=== PATIENT | female | born 1960 | race Caucasian/White ===

== ENCOUNTER → 2023-10-21 | Emergency (ER) | payer MEDICAID ==
[~2023-10-21] VITALS: Ht 165.1 cm; Wt 54.5 kg
[2023-10-21 21:52] VITALS: BP 158/84; PULSE 71; RESP 16; TEMP 98.5; O2SAT 100
== END | disposition left against medical advice (07) ==
LOC: ER 21:30
DX: R41.0 Disorientation, unspecified (principal); R40.4 Transient alteration of awareness
CPT/HCPCS: 99281

== ENCOUNTER 2024-03-11 10:01 | Outpatient (CLI) | payer MEDICAID | END 2024-03-11 23:59 | disposition home or self-care (01) | LOC: RAD 10:01 | PROVIDERS: ATTEND Student in an Organized Health Care Education/Training Program | DX: K82.4 Cholesterolosis of gallbladder (principal); K43.9 Ventral hernia without obstruction or gangrene | CPT/HCPCS: 76700 ==

== ENCOUNTER 2024-06-05 09:15 | Day surgery (SDC) | payer MEDICAID ==
[2024-06-05] VITALS (12 sets, daily range): BP systolic 125–159; BP diastolic 58–95; PULSE 48–74; RESP 10–12; TEMP 97.9; O2SAT 95–100
[~2024-06-05] VITALS: Ht 165.1 cm; Wt 58.5 kg
[2024-06-05] MEDS ORDERED: nitroGLYCERIN 0.4mg SUBLingual tab SL PRN (09:55)
[2024-06-05 10:13] LABS: BASOPHILS % (AUTO) 1.3 % (0-1); EOSINOPHILS # (AUTO) 0.1 X10'3 (0-0.9); EOSINOPHILS % (AUTO) 4.6 % (0-6); HEMATOCRIT 36.1 % (35.0-45.0); HEMOGLOBIN 12.4 g/dl (12.0-16.0); LYMPHOCYTES # (AUTO) 0.8 X10'3 (1.1-4.8); LYMPHOCYTES % (AUTO) 29.4 % (21-51); MEAN CORPUSCULAR HEMOGLOBIN 32.5 PG (27.0-31.0); MEAN CORPUSCULAR HGB CONC 34.3 g/dL (33.0-36.5); MEAN CORPUSCULAR VOLUME 94.8 FL (78-98); MEAN PLATELET VOLUME 6.9 FL (7.4-10.4); MONOCYTES # (AUTO) 0.4 X10'3 (0-0.9); MONOCYTES % (AUTO) 13.9 % (2-12); NEUTROPHILS # (AUTO) 1.4 X10'3 (1.8-7.7); NEUTROPHILS % (AUTO) 50.8 % (42-75); PLATELET COUNT 189 X10'3 (140-440); RED BLOOD COUNT 3.81 X10'6 (4.20-5.60); RED CELL DISTRIBUTION WIDTH 13.7 % (11.5-14.5); WHITE BLOOD COUNT 2.7 X10'3 (4.5-11.0)
[2024-06-05 10:21] LABS: ALBUMIN 3.4 G/DL (3.4-5.0); ANION GAP 6 (8-16); BLOOD UREA NITROGEN 11 MG/DL (7-18); BUN/CREATININE RATIO 18.3 (10.0-20.0); CALCIUM 8.5 MG/DL (8.5-10.1); CHLORIDE 106 MMOL/L (99-107); GLUCOSE 83 MG/DL (70-104); POTASSIUM 3.7 MMOL/L (3.5-5.1); SODIUM 140 MMOL/L (135-145); TOTAL CARBON DIOXIDE 28.5 MMOL/L (24-32); eCRCL 89 ML/MIN; eGFR > 90 ML/MIN
[2024-06-05] MEDS ORDERED: FERR236T3 PO (10:21)
[2024-06-05] MEDS ORDERED: TRAZ-256 PO (10:21)
[2024-06-05] MEDS ORDERED: BUSP15TA3 PO (10:21)
[2024-06-05] MEDS ORDERED: PANT40TA54 PO (10:21)
[2024-06-05] MEDS ORDERED: LEVO125T8 PO (10:21)
[2024-06-05] MEDS ORDERED: PYRI-3 PO (10:21)
[2024-06-05] MEDS ORDERED: ONDA-104 SL (10:21)
[2024-06-05] MEDS ORDERED: DULO30CA52 PO (10:21)
[2024-06-05] MEDS ORDERED: CYAN50007 PO (10:21)
[2024-06-05 10:26] LABS: APTT 27 SECONDS (22-32); INR 1.1 INR; PROTHROMBIN TIME 11.8 SECONDS (9.0-12.0)
[2024-06-05] MEDS: LORazepam 0.5 MG tablet PO PRN (10:32)
[2024-06-05] MEDS: diphenhydrAMINE 25mg capsule PO PRN (10:32)
[2024-06-05] MEDS: normal saline 1,000 ML IV SCH (10:33)
[2024-06-05 10:41] LABS: PLATELET ESTIMATE NORMAL; TOTAL CELLS COUNTED 100
[2024-06-05] MEDS ORDERED: LIDOcaine 1% 30ml preserv. free vial ONE (10:46)
[2024-06-05] MEDS ORDERED: fentaNYL/PF 50MCG/1 ML 2ML syringe ONE (10:46)
[2024-06-05] MEDS ORDERED: midazolam 1 mg/ML 2ml injection ONE (10:46)
[2024-06-05] MEDS ORDERED: iohexol 350 MG/ML 50ML vial IV ONE (10:46)
[2024-06-05] MEDS ORDERED: iohexol 350MG/ML 100ml bottle IV ONE (10:46)
[2024-06-05] MEDS ORDERED: HYDROcodone/acetaminophen 5mg/325mg tablet PO PRN (12:30)
[2024-06-05] MEDS ORDERED: morphine 4 MG/ML inj SYRINge IV PRN (12:30)
[2024-06-05] MEDS ORDERED: HYDROcodone/acetaminophen 10/325mg tab PO PRN (12:30)
[2024-06-05] MEDS ORDERED: ondansetron/PF 4mg/2ml inj IV PRN (12:30)
[2024-06-05] MEDS ORDERED: normal saline 1000ml 1,000 ML IV SCH (12:30)
[2024-06-05] MEDS ORDERED: proCHLORperazine 10 MG/2 ml inj IV PRN (12:30)
[2024-06-05] MEDS ORDERED: OXAZEpam 15mg capsule PO PRN (12:30)
[2024-06-05] MEDS ORDERED: ACETYLCYSTEINE 200 MG/1 ML 4 ML ORAL SOLUTION PO SCH (20:00)
== END 2024-06-05 18:00 | disposition home or self-care (01) ==
LOC: SSTAY O 09:15
PROVIDERS: ATTEND Internal Medicine Cardiovascular Disease
DX: R94.39 Abnormal result of other cardiovascular function study (principal); I25.10 Atherosclerotic heart disease of native coronary artery without angina pectoris; R94.31 Abnormal electrocardiogram [ECG] [EKG]; K21.9 Gastro-esophageal reflux disease without esophagitis; Z98.890 Other specified postprocedural states
CPT/HCPCS: 71046; 80048; 85025; 85610; 85730; 93005; 93458; 99152; J1644; J2250; J3010; J3490; J7030; Q0163; Q9967; 85007; A6258; C1760; C1769

== ENCOUNTER 2024-06-25 06:26 | Day surgery (SDC) | payer MEDICAID ==
[~2024-06-25] VITALS: Ht 165.1 cm; Wt 54.1 kg
[~2024-06-25 06:26] MED LIST: BUSP15TA3 PO; CYAN50007 PO; DULO30CA52 PO; FERR236T3 PO; LEVO125T8 PO; ONDA-104 SL; PANT40TA54 PO; PYRI-3 PO; TRAZ-256 PO
[2024-06-25 06:49] VITALS: BP 112/56; PULSE 64; RESP 13
[2024-06-25] MEDS ORDERED: LIDOcaine 2% Viscous 15ml cup ONE (07:29)
[2024-06-25] MEDS ORDERED: fentaNYL/PF 50MCG/1 ML 2ML syringe ONE (07:50)
[2024-06-25] MEDS ORDERED: MIDAZolam 1 MG/ML 5ML VIAL ONE (07:50)
[2024-06-25] MEDS ORDERED: simethicone 40mg/0.6ml oral drops 30ml ONE (08:25)
[2024-06-25 08:28] VITALS: BP 108/65; PULSE 64; RESP 17; O2SAT 94
[2024-06-25 08:36] VITALS: BP 117/66; PULSE 62; RESP 12; O2SAT 94
[2024-06-25 08:46] VITALS: BP 109/66; PULSE 62; RESP 12; O2SAT 96
[2024-06-25 08:56] VITALS: BP 112/64; PULSE 59; RESP 13; O2SAT 95
== END 2024-06-25 09:02 | disposition home or self-care (01) ==
LOC: GI LAB 06:26
PROVIDERS: ATTEND Surgery
DX: K44.9 Diaphragmatic hernia without obstruction or gangrene (principal); K29.70 Gastritis, unspecified, without bleeding
CPT/HCPCS: 43239; 99152; J2250; J3010; J7030; Z7512; 99153; A4620

== ENCOUNTER 2024-09-05 05:42 | Inpatient (IN) | payer MEDICAID ==
[2024-08-30 15:33] LABS: BASOPHILS % (AUTO) 0.9 % (0-1); EOSINOPHILS # (AUTO) 0.2 X10'3 (0-0.9); EOSINOPHILS % (AUTO) 4.7 % (0-6); LYMPHOCYTES % (AUTO) 27.6 % (21-51); MEAN CORPUSCULAR HEMOGLOBIN 33.3 PG (27.0-31.0); MEAN CORPUSCULAR HGB CONC 34.8 g/dL (33.0-36.5); MEAN CORPUSCULAR VOLUME 95.7 FL (78-98); MEAN PLATELET VOLUME 6.6 FL (7.4-10.4); MONOCYTES # (AUTO) 0.3 X10'3 (0-0.9); MONOCYTES % (AUTO) 9.7 % (2-12); NEUTROPHILS % (AUTO) 57.1 % (42-75); PRE OP HEMATOCRIT 35.3 % (35.0-45.0); PRE OP HEMOGLOBIN 12.3 g/dL (12.0-16.0); PRE OP PLATELET COUNT 247 X10'3 (140-440); PRE OP WHITE BLOOD COUNT 3.5 10'3 (4.8-10.8); RED BLOOD COUNT 3.69 X10'6 (4.20-5.60); RED CELL DISTRIBUTION WIDTH 13.4 % (11.5-14.5)
[2024-08-30 15:45] LABS: ALBUMIN 3.4 G/DL (3.4-5.0); ALBUMIN/GLOBULIN RATIO 1.1 (1.1-1.5); ALKALINE PHOSPHATASE 104 IU/L (46-116); BLOOD UREA NITROGEN 14 MG/DL (7-18); BUN/CREATININE RATIO 20.3 (10.0-20.0); CALCIUM 8.6 MG/DL (8.5-10.1); CHLORIDE 103 MMOL/L (99-107); CREATININE 0.69 MG/DL (0.40-0.90); PRE OP ALT 33 U/L (30-65); PRE OP ANION GAP 6 (8-16); PRE OP AST 22 U/L (10-37); PRE OP BILIRUB, TOTAL 0.2 MG/DL (0.0-1.0); PRE OP GLUCOSE 105 MG/DL (70-104); PRE OP POTASSIUM 3.5 MMOL/L (3.4-5.1); PRE OP SODIUM 141 MMOL/L (135-145); TOTAL CARBON DIOXIDE 31.7 MMOL/L (24-32); TOTAL PROTEIN 6.6 G/DL (6.4-8.2); eGFR 86 ML/MIN
[2024-09-02 13:21] LABS: BILIRUBIN,URINE NEGATIVE (Neg); CLARITY,URINE CLEAR (Clear); COLOR,URINE YELLOW (Yellow); GLUCOSE, URINE NEGATIVE (Neg); KETONES,URINE NEGATIVE (Neg); LEUKOCYTE ESTERASE ,URINE NEGATIVE (Neg); NITRITES, URINE NEGATIVE (Neg); OCCULT BLOOD,URINE NEGATIVE (Neg); PROTEIN,URINE NEGATIVE (Neg); UROBILINOGEN,URINE 0.2 E.U/dL (0.2-1.0)
[2024-09-02 13:29] LABS: UA COLLECTION TYPE NON-SPECIFIED
[2024-09-05] VITALS (31 sets, daily range): BP systolic 98–148; BP diastolic 44–93; PULSE 63–89; RESP 13–20; TEMP 97.9–98.3; O2SAT 63–98
[~2024-09-05] VITALS: Ht 165.1 cm; Wt 57.3 kg
[~2024-09-05 05:42] MED LIST changes: -BUSP15TA3 PO; +CHOL200013 PO; -CYAN50007 PO; -FERR236T3 PO; +FERR325T29 PO; +GABA-530 PO; -ONDA-104 SL; -PYRI-3 PO
[2024-09-05] MEDS: famotidine 20mg tablet PO ONE (06:09)
[2024-09-05] MEDS: ringers solution, lacted 1,000 ML IV SCH ×2 (06:10→07:25)
[2024-09-05] MEDS: ceFAZolin 2gm in dextrose, iso 50 ML IV ONE (06:11)
[2024-09-05] MEDS ORDERED: LIDOcaine 1% 30ml preserv. free vial ONE (06:46)
[2024-09-05] MEDS ORDERED: BUPIVAcaine 2.5mg/ml inj 50ml vial (contains preservative) ONE (06:46)
[2024-09-05] MEDS ORDERED: dexmedetomidine 200mcg/2ml inj. IV ONE (07:12)
[2024-09-05] MEDS ORDERED: fentaNYL /PF 50mcg/ml 5ml ampule ONE (07:16)
[2024-09-05] MEDS ORDERED: LIDOcaine 2% (20mg/ml) 5ml vial ONE (07:18)
[2024-09-05] MEDS ORDERED: rocuronium 10mg/ml inj IV ONE ×2 (07:18→08:40)
[2024-09-05] MEDS ORDERED: propofol inj 20 ML IV ONE (07:18)
[2024-09-05] MEDS ORDERED: ondansetron/PF 4mg/2ml inj ONE (07:18)
[2024-09-05] MEDS ORDERED: dexamethasone sod phosphate 4mg/ml inj. ONE (07:18)
[2024-09-05] MEDS ORDERED: sevoflurane 250ml liquid IH ONE (07:24)
[2024-09-05] MEDS ORDERED: labetalol 20mg/4ml (5mg/ml) syringe IV PRN (07:25)
[2024-09-05] MEDS ORDERED: proCHLORperazine 10 MG/2 ml inj IV PRN (07:25)
[2024-09-05] MEDS ORDERED: morphine 4 MG/ML inj SYRINge IV PRN (07:25)
[2024-09-05] MEDS ORDERED: hydrALAZINE 20mg/ml inj. IV PRN (07:25)
[2024-09-05] MEDS: midazolam 1 mg/ML 2ml injection IV ONE (07:25)
[2024-09-05] MEDS ORDERED: ondansetron/PF 4mg/2ml inj IV PRN ×2 (07:25→09:50)
[2024-09-05] MEDS ORDERED: fentaNYL/PF 50MCG/1 ML 2ML syringe IV PRN ×2 (07:25)
[2024-09-05] MEDS ORDERED: acetaminophen 1,000mg/100ml IV 100 ML IV ONE (07:39)
[2024-09-05] MEDS ORDERED: ePHEDrine 50MG/ML INJ. ONE (07:47)
[2024-09-05] MEDS: BUPIVAcaine 0.25% w/Epi /PF 30ml vial IJ ONE (08:22)
[2024-09-05] MEDS ORDERED: sugammadex 200mg/2ml injection IV ONE (08:56)
[2024-09-05] MEDS: normal saline 1000ml 1,000 ML IV SCH (09:50)
[2024-09-05] MEDS ORDERED: naloxone 0.4 mg/ml inj IV PRN (09:50)
[2024-09-05] MEDS: potassium CL 20mEq in D5-1/2NS 1,000 ML IV SCH (09:50)
[2024-09-05] MEDS: morphine 2 MG/ML inj. syringe IV PRN (10:00)
[2024-09-05] MEDS: HYDROmorph/NS 0.2 mg/ml PCA 100 ML IV SCH (10:54)
[2024-09-05] MEDS: duloxetine 30mg CAPSULE.DR PO SCH (14:03)
[2024-09-05] MEDS: heparin, porcine 5000 units/ml vial SQ SCH (19:39)
[2024-09-05] MEDS: sennosides/docusate sodium tablet PO SCH (19:39)
[2024-09-05] MEDS: docusate sod 100mg capsule PO SCH (19:40)
[2024-09-05] MEDS: traZODone 50mg tablet PO SCH (19:40)
[2024-09-06 05:00] VITALS: RESP 15
[2024-09-06 06:53] VITALS: BP 147/75
[2024-09-06] MEDS: levoTHYROXINE 125mcg tablet PO SCH (07:28)
[2024-09-06] MEDS ORDERED: oxyCODONE/APAP 5-325mg tablet PO PRN (08:20)
[2024-09-06] MEDS ORDERED: PER5325T PO (08:23)
[2024-09-06] MEDS: oxyCODONE/APAP 5-325mg tablet PO ONE (08:45)
[2024-09-06] MEDS: PCA WASTE DOCUMENTATION 1 MG ML MC SCH (09:37)
== END 2024-09-06 09:49 | disposition home or self-care (01) | DRG 220 ==
LOC: PAS IN 05:42 → SUR 3N 12:26
PROVIDERS: ADMIT Surgery; ATTEND Surgery
PROC: 8E0W4CZ Robotic Assisted Procedure of Trunk Region, Percutaneous Endoscopic Approach (ICD-10-PCS; 2024-09-05)
PROC: 0DQ64ZZ Repair Stomach, Percutaneous Endoscopic Approach (ICD-10-PCS; 2024-09-05)
PROC: 0BUT4JZ Supplement Diaphragm with Synthetic Substitute, Percutaneous Endoscopic Approach (ICD-10-PCS; principal; 2024-09-05 07:24)
DX: K44.9 Diaphragmatic hernia without obstruction or gangrene (principal); Z79.899 Other long term (current) drug therapy
CPT/HCPCS: 36415; 71045; 80053; 81003; 82948; 85025; 87081; 93005; A4615; A4618; C1781; G0378; J0131; J0690; J1100; J1171; J1644; J2003; J2250; J2270; J2405; J2704; J3010; J3490; J7030; J7120; S0020

== ENCOUNTER 2025-03-25 11:23 | Outpatient (CLI) | payer MEDICAID ==
[~2025-03-25 11:23] MED LIST changes: -PANT40TA54 PO; +PER5325T PO
--- NOTE | 2025-03-25 20:33 | RADIOLOGY REPORT ---
EXAM: MR MRI LOWER EXTREMITY LEFT HISTORY: PAIN L KNEE COMPARISON: None TECHNIQUE: Multiplanar, multisequence imaging of the left knee was performed without contrast FINDINGS: MEDIAL COMPARTMENT: Intact medial meniscus. No focal chondrosis or subchondral edema. LATERAL COMPARTMENT: Intact lateral meniscus. No focal chondrosis or subchondral edema. PATELLOFEMORAL COMPARTMENT: No focal chondrosis or subchondral edema. CRUCIATE LIGAMENTS: Intact anterior and posterior cruciate ligaments. MEDIAL SUPPORTING STRUCTURES: Intact medial collateral ligament. LATERAL SUPPORTING STRUCTURES: Intact iliotibial band, lateral capsular ligament, fibular collateral ligament, popliteus, and biceps femoris tendons EXTENSOR MECHANISM: Intact JOINT SPACE/FLUID: Small knee joint effusion. Small Colin's cyst. Fluid along the posterior joint ca psule and along the margin of the popliteus muscle. BONES: Transversely oriented predominant medial proximal tibial metaphyseal fracture with surrounding bone marrow edema. MUSCLES: Low-grade muscle strain versus reactive myositis of the popliteus and anterior tibialis musc le bellies of the proximal calf NEUROVASCULAR: Unremarkable OTHER: None IMPRESSION: 1. Transversely oriented predominant medial proximal tibial metaphyseal fracture with surrounding bon e marrow edema. 2. Low-grade muscle strain versus reactive myositis of the popliteus and anterior tibialis muscle bel lies of the proximal calf 3. Small knee joint effusion. Small Colin's cyst. Fluid along the posterior joint capsule and along the margin of the popliteus muscle.
== END 2025-03-25 23:59 | disposition home or self-care (01) ==
LOC: MRI02 11:23
PROVIDERS: ATTEND Student in an Organized Health Care Education/Training Program
DX: M25.461 Effusion, right knee (principal); M25.562 Pain in left knee; M71.21 Synovial cyst of popliteal space [Baker], right knee
CPT/HCPCS: 73721